=== PATIENT | female | born 1950 | race Caucasian/White ===

== ENCOUNTER 2018-12-01 06:14 | Day surgery (SDC) | payer MEDICARE ==
[~2018-12-01] VITALS: Ht 167.6 cm; Wt 153.3 kg
[~2018-12-01 06:14] MED LIST: ALBUTEROL0.63 MG/3; CELEXA40 MG PO; CYCLOBENZAPRINE10 MG PO; HYDROCODON-ACE1 EA10 PO; IPRAT-ALBUT 0.5-3 ML UPD; KLONOPIN0.5 MG PO; LEVOTHYROXINE50 MCG PO; MIRAPEX0.25 MG PO; NYAMYC60 GM TP; PRAVASTATIN SOD10 MG PO; PRENAVITE1 TAB PO; PROTONIX40 MG PO; TENORMIN25 MG PO
[2018-12-01 06:44] LABS: HEMATOCRIT 37.8 % (36.0-48.0); HEMOGLOBIN 11.9 g/dL (12-16); MCHC 31.5 g/dL (31.0-37.0); MCV 95.2 fL (80.0-100.0); MEAN PLATELET VOLUME 9.2 fL (7.4-10.4); RBC 3.97 10x6/uL (4.00-5.40); RDW 14.8 % (11.5-14.5); WBC 8.2 10x3/uL (4.8-10.8)
[2018-12-01 07:50] VITALS: BP 144/77; Ht 167.6 cm; Wt 153.3 kg
== END 2018-12-01 10:25 | disposition home or self-care (01) ==
LOC: D.OPS 06:14 → D.PAN 11:45
PROVIDERS: Anesthesiology; ATTEND Urology
DX: N32.0 Bladder-neck obstruction (principal); N39.41 Urge incontinence; Z01.812 Encounter for preprocedural laboratory examination; Z53.09 Procedure and treatment not carried out because of other contraindication

== ENCOUNTER → 2018-12-27 08:25 | Outpatient (CLI) | payer MEDICARE ==
[2018-12-01 07:50] VITALS: BMI 54.6
== END | disposition home or self-care (01) ==
LOC: D.HCCARDIO 08:25
PROVIDERS: ATTEND Internal Medicine Cardiovascular Disease
DX: I20.9 Angina pectoris, unspecified (principal)